=== PATIENT | male | born 1995 | race African-American/Black ===

== ENCOUNTER 2017-03-01 18:09 | Emergency (ER) | payer OTHER ==
[~2017-03-01] VITALS: Ht 180.3 cm; Wt 74.1 kg
--- NOTE | 2017-03-01 19:30 | REPUSA ---
CT of the head Clinical history: trauma. Technique: Multiple axial CT images were obtained through the head without administration of contrast . Findings: The ventricles and sulci are symmetric bilaterally. There is no evidence of acute hemorrhag e or infarct. There is no midline shift, mass effect, or extra-axial fluid collection. The osseous st ructures are unremarkable. The visualized paranasal sinuses demonstrates fluid in mucosal thickening in the ethmoid sinuses. The mastoid air cells are clear. Impression: 1. No acute intracranial hemorrhage or infarct. 2. Ethmoid sinusitis.
[2017-03-01 19:43] VITALS: BP 115/56
== END 2017-03-01 19:45 | disposition home or self-care (01) ==
LOC: M ED 18:09
DX: S00.83XA Contusion of other part of head, initial encounter (principal); W19.XXXA Unspecified fall, initial encounter; X58.XXXA Exposure to other specified factors, initial encounter; Y92.89 Other specified places as the place of occurrence of the external cause; Y93.89 Activity, other specified; Y99.8 Other external cause status

== ENCOUNTER 2019-08-13 18:42 | Emergency (ER) | payer OTHER ==
[~2019-08-13] VITALS: Ht 180.3 cm; Wt 78.3 kg
[2019-08-13 18:42] VITALS: BP 121/67
[2019-08-13] MEDS ORDERED: KEFL500C17 PO (19:11)
[2019-08-13] MEDS ORDERED: CEPHALEXIN 500 MG CAP PO ONE (19:15)
== END 2019-08-13 19:23 | disposition home or self-care (01) ==
LOC: M ED 18:42
DX: L03.012 Cellulitis of left finger (principal)

== ENCOUNTER → 2020-04-17 | Outpatient (CLI) | payer SELFPAY ==
[~2020-04-17] MED LIST: KEFL500C17 PO
== END ==
LOC: M LABSMTC 10:45
PROVIDERS: ATTEND Pediatrics
DX: Z20.822 Contact with and (suspected) exposure to COVID-19 (principal)